=== PATIENT | male | born 1980 | race Two or more races ===

== ENCOUNTER → 2021-10-12 | Emergency (ER) | payer OTHER | END | disposition home or self-care (01) | LOC: ER 16:16 | DX: L02.415 Cutaneous abscess of right lower limb (principal) ==

== ENCOUNTER 2022-04-22 08:53 | Emergency (ER) | payer OTHER ==
[~2022-04-22] VITALS: Ht 172.7 cm; Wt 88.9 kg
== END 2022-04-22 12:49 | disposition home or self-care (01) ==
LOC: ER 08:53
DX: U07.1 COVID-19 (principal); R09.81 Nasal congestion; R51.9 Headache, unspecified